=== PATIENT | female | born 1970 | race Caucasian/White ===

== ENCOUNTER 2022-04-06 09:58 | Day surgery (SDC) | payer BC, OTHER ==
[~2022-04-06 09:58] MED LIST: Propofol 200 MG/20 ML SDV ONE
[2022-04-06] MEDS ORDERED: Lactated Ringers 1,000 ML IV SCH (10:30)
[2022-04-06] MEDS ORDERED: Propofol 200 MG/20 ML SDV ONE (11:57)
== END 2022-04-06 12:50 | disposition home or self-care (01) ==
LOC: MW.SDS 09:58
PROVIDERS: ATTEND Surgery
DX: Z12.11 Encounter for screening for malignant neoplasm of colon (principal); D12.2 Benign neoplasm of ascending colon; D12.3 Benign neoplasm of transverse colon; D12.4 Benign neoplasm of descending colon; F41.9 Anxiety disorder, unspecified; E03.9 Hypothyroidism, unspecified; Z88.8 Allergy status to other drugs, medicaments and biological substances; Z79.890 Hormone replacement therapy
CPT/HCPCS: 00812; J2704; J7120